=== PATIENT | male | born 1965 | race Two or more races ===

== ENCOUNTER 2017-05-18 14:35 | Emergency (ER) | payer MEDICAID ==
[2017-05-18 14:57] VITALS: RESP 18; TEMP 98.2
[2017-05-18] MEDS ORDERED: DIAZEPAM 10 MG/2 ML SYR IVP ONE (15:07)
[2017-05-18] MEDS ORDERED: DEXAMETHASONE 4 MG/ML VIAL IVP ONE (15:07)
[2017-05-18] MEDS ORDERED: KETOROLAC 15 MG/1 ML SDV IVP ONE (15:07)
--- NOTE | 2017-05-18 15:15 | EDPHY ---
H & P Stated Complaint: LOW BACK Time Seen by Provider: 05/18/17 14:56 HPI/ROS: CHIEF COMPLAINT: Low back pain HISTORY OF PRESENT ILLNESS: The patient is a 51-year-old man with no significant history of low back pain states that he woke up this morning to go to the bathroom and had severe low back pain and could hardly get out of bed. 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 He did not have any pain at the time but developed pain overnight. He points to bilateral paraspinous muscles in his lumbar region. He denies radiation. He did tell triage that he had some stinging in both buttocks but denies that to me. No bowel or bladder abnormalities. No weakness or numbness in legs. No immunocompromise. IV drug use. No fever. No change in sensation. He is an avid runner. REVIEW OF SYSTEMS: Constitutional: denies: chills, fever, recent illness, recent injury EENTM: denies: blurred vision, double vision, nose congestion Respiratory: denies: cough, shortness of breath Cardiac: denies: chest pain, irregular heart rate, lightheadedness, palpitations Gastrointestinal/Abdominal: denies: abdominal pain, diarrhea, nausea, vomiting, blood streaked stools Genitourinary: denies: dysuria, frequency, hematuria, pain Musculoskeletal: See HPI Skin: denies: lesions, rash, jaundice, bruising Neurological: denies: headache, numbness, paresthesia, tingling, dizziness, weakness Hematologic/Lymphatic: denies: blood clots, easy bleeding, easy bruising Immunologic/allergic: denies: HIV/AIDS, transplant EXAM: GENERAL: Well-appearing, well-nourished and in no acute distress. HEAD: Atraumatic, normocephalic. EYES: Pupils equal round and reactive to light, extraocular movements intact, sclera anicteric, conjunctiva are normal. ENT: TMs normal, nares patent, oropharynx clear without exudates. Moist mucous membranes. NECK: Normal range of motion, supple without lymphadenopathy or JVD. LUNGS: Breath sounds clear to auscultation bilaterally and equal. No wheezes rales or rhonchi. HEART: Regular rate and rhythm without murmurs, rubs or gallops. ABDOMEN: Soft, nontender, normoactive bowel sounds. No guarding, no rebound. No masses appreciated. BACK: No spinal tenderness or step-offs. No swelling or deformity. No erythema or warmth. Pain to bilateral paraspinous muscles. No tenderness. Slight improvement with massage. Pain with he reaction of his back or twisting. EXTREMITIES: Normal range of motion, no pitting or edema. No clubbing or cyanosis. NEUROLOGICAL: Cranial nerves II through XII grossly intact. Normal speech. 5/ 5 strength in both legs, normal movement in all extremities, normal sensation, normal reflexes, PSYCH: Normal mood, normal affect. SKIN: Warm, dry, normal turgor, no visible rashes or lesions. Source: Patient Exam Limitations: No limitations - Medical/Surgical History Hx Asthma: No Hx Chronic Respiratory Disease: No Hx Diabetes: No Hx Cardiac Disease: No Hx Renal Disease: No Hx Cirrhosis: No Hx Alcoholism: No Hx HIV/AIDS: No Hx Splenectomy or Spleen Trauma: No Other PMH: bowel resection for diverticulitis/GALL STONES - Family History Significant Family History: No pertinent family hx - Social History Smoking Status: Never smoked Alcohol Use: Sober Drug Use: None Constitutional: Initial Vital Signs Temperature (C) 36.8 C 05/18/17 14:53 Heart Rate 77 05/18/17 14:53 Respiratory Rate 18 05/18/17 14:53 Blood Pressure 152/110 H 05/18/17 14:53 O2 Sat (%) 99 05/18/17 14:53 O2 Delivery Mode Room Air Allergies/Adverse Reactions: No Known Allergies Allergy (Unverified 05/18/17 14:52) Home Medications: Medication Instructions Recorded Diazepam [Valium 5 MG (*)] 5 mg PO TID PRN #15 tab 05/18/17 Effexor 05/18/17 Medical Decision Making - Diagnostics Imaging Results: Imaging Impressions Lumbar Spine CT 05/18/17 15:08 Impression: Multilevel 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 The levels of more significant neural foraminal encroachment are at L3-L4 through L5-S1, as detailed above by level. Results called and discussed with Dr. Shaun Baca on May 18, 2017 at 1606 hours. Imaging: Discussed imaging studies w/ call center agent Radiologist ED Course/Re-evaluation: We discussed the CT results. The patient is reassured. He is feeling much better after Valium. He is moving. He is ambulating. I encouraged him to rest , take muscle relaxants as needed as well as ibuprofen and use ice. He understands and agrees with this plan. He asked about running and we discussed the fact that this will likely exacerbate the arthritic changes in his back. He was somewhat tearful with this. We discussed follow-up as well as indications for returning. Differential Diagnosis: Partial list of the Differential diagnosis considered include but were not limited to; low back pain, muscle strain, radiculopathy and although unlikely based on the history and physical exam, I also considered cauda equina, infection, fracture. I discussed these differential diagnoses and the plan with the patient as well as the usual and expected course. The patient understands that the diagnosis is provisional and that in medicine we are not always correct and that further workup is often warranted. Usual and customary warnings were given. All of the patient's questions were answered. The patient was instructed to return to the emergency department should the symptoms at all worsen or return, otherwise to followup with the physician as we discussed. - Data Points Medications Given: Discontinued Medications Dexamethasone (Decadron Injection) 8 mg IVP EDNOW ONE Stop: 05/18/17 15:08 Last Admin: 05/18/17 15:21 Dose: 8 mg Diazepam (Valium Injection) 5 mg IVP EDNOW ONE Stop: 05/18/17 15:08 Last Admin: 05/18/17 15:22 Dose: 5 mg Ketorolac Tromethamine (Toradol) 15 mg IVP EDNOW ONE Stop: 05/18/17 15:08 Last Admin: 05/18/17 15:19 Dose: 15 mg Departure - Departure Disposition: Home, Routine, Self-Care Clinical Impression: Low back pain Qualifiers: Chronicity: acute Back pain laterality: bilateral Sciatica presence: without sciatica Qualified Code(s): M54.5 - Low back pain Condition: Fair Instructions: Acute Low Back Pain (ED) Referrals: [facility] [Primary Care Provider] - As per Instructions Stand Alone Forms: Work Excuse Prescriptions: Diazepam [Valium 5 MG (*)] 5 mg PO TID PRN #15 tab PRN Reason: Spasms
[2017-05-18 17:59] VITALS: BP 130/109; PULSE 56; O2SAT 98
== END 2017-05-18 16:30 | disposition home or self-care (01) ==
LOC: CED 14:35
DX: M54.5 Low back pain (principal)
CPT/HCPCS: 72131-PO; 96374; J1100; J1885